=== PATIENT | male | born 1970 | race Caucasian/White ===

== ENCOUNTER → 2022-01-11 | Day surgery (SDC) | payer OTHER ==
[~2022-01-11] VITALS: Ht 170.2 cm; Wt 102.0 kg
[~2022-01-11] MED LIST: METFORMIN HCL500 MG PO; NORCO 5-325 TA1 EACH PO
[2022-01-11 13:19] LABS: HCT 40.9 % (42.0-52.0); MCH 32.9 pg (25.0-31.0); MCHC 34.2 g/dL (32.0-36.0); MPV 12.7 fL (6.0-9.5); RBC 4.26 M/uL (4.70-6.00); RDW 12.8 % (11.5-14.0); WBC 3.4 K/uL (4.0-10.5)
[2022-01-11 13:41] LABS: ALBUMIN 3.2 g/dL (3.4-5.0); BILIRUBIN - TOTAL 1.5 mg/dL (0.2-1.0); CREATININE 0.6 mg/dL (0.67-1.17); GLOBULIN (CALCULATION) 3.6 g/dL; POTASSIUM 4.1 mmol/L (3.5-5.1); TOTAL PROTEIN 6.8 g/dL (6.4-8.2)
== END | disposition home or self-care (01) ==
LOC: FAS 12:23
PROVIDERS: Orthopaedic Surgery
DX: M25.811 Other specified joint disorders, right shoulder (principal); M19.011 Primary osteoarthritis, right shoulder; M77.8 Other enthesopathies, not elsewhere classified; M75.51 Bursitis of right shoulder
CPT/HCPCS: 36415; 71045; 80053; 93005; J0690; J2250; J2704; J2795; J3010; J7120